=== PATIENT | female | born 1990 | race Caucasian/White ===

== ENCOUNTER 2024-09-16 12:37 | Outpatient (CLI) | payer BC, SELFPAY ==
--- NOTE | 2024-09-16 13:00 | CRLHL7_ITS ---
For Patients: As a result of the Century Cures Act, medical imaging exams and procedure reports are released immediately into your electronic medical record. You may view this report before your referring provider. If you have questions, please contact your health care provider. INDICATION: Dating and viability TECHNIQUE: Ultrasound OB pelvis transvaginal. Real-time de la o-scale imaging of the pelvis was performed. COMPARISON: None FINDINGS: Clinical Age: 8 weeks 3 days (PETER 04/25/2025) Sonographic imaging demonstrates a single living intrauterine gestation. The embryo demonstrates a regular cardiac rate measuring 169 beats per minute. The embryo`s crown rump length measurement of 1.8 cm corresponds to a gestational age of 8 weeks 2 days which is within standard deviation the clinical age. There is a normal appearing yolk sac. There are no gross abnormalities noted within the embryo at this early state of development. The placenta has not yet developed. There is no sign of perigestational hemorrhage. Maternal ovaries unremarkable. There are no suspicious fluid collections noted in the cul-de-sac. IMPRESSION: Single viable intrauterine with a clinical age of 8 weeks 3 days. No abnormalities seen. Dictated by Brady Díaz MD @ 09/17/2024 9:20:04 AM (Electronically Signed)
== END 2024-09-16 12:38 | disposition home or self-care (01) ==
LOC: US 12:38
PROVIDERS: Visit Provider Registered Nurse
DX: Z34.81 Encounter for supervision of other normal pregnancy, first trimester (principal); Z3A.08 8 weeks gestation of pregnancy; Z67.11 Type A blood, Rh negative
CPT/HCPCS: 76817; 86592; 86703; 86704; 86706; 86762; 86787; 86803; 86850; 86900; 86901; 87086; 87340; 87491; 87591

== ENCOUNTER 2024-12-04 08:14 | Outpatient (CLI) | payer BC, SELFPAY | END 2024-12-04 08:15 | disposition home or self-care (01) | LOC: US 08:16 | PROVIDERS: Visit Provider Obstetrics & Gynecology | DX: O09.522 Supervision of elderly multigravida, second trimester (principal); Z3A.19 19 weeks gestation of pregnancy | CPT/HCPCS: 76811 ==

== ENCOUNTER 2025-02-04 10:59 | Outpatient (CLI) | payer BC, SELFPAY | END 2025-02-04 11:00 | disposition home or self-care (01) | PROVIDERS: Visit Provider Advanced Practice Midwife | DX: Z34.92 Encounter for supervision of normal pregnancy, unspecified, second trimester (principal); Z3A.28 28 weeks gestation of pregnancy | CPT/HCPCS: 84443; 86592; 86706; 86850; J2791 ==

== ENCOUNTER 2025-03-27 14:15 | Outpatient (CLI) | payer BC, SELFPAY | END 2025-03-27 14:16 | disposition home or self-care (01) | LOC: NFLDREF 04-03 00:20 | PROVIDERS: Visit Provider Midwife | DX: Z34.83 Encounter for supervision of other normal pregnancy, third trimester (principal) | CPT/HCPCS: 87081; 87653 ==

== ENCOUNTER 2025-04-22 22:13 | Outpatient (CLI) | payer BC, SELFPAY ==
[2025-04-22 22:33] VITALS: PULSE 80; O2SAT 97
[2025-04-22 22:36] VITALS: BP 128/76; PULSE 77; RESP 16; TEMP 36.8
[2025-04-22 22:38] VITALS: PULSE 83; O2SAT 97
[2025-04-22 22:43] VITALS: PULSE 84; O2SAT 97
[2025-04-22 22:48] VITALS: PULSE 83; O2SAT 97
--- NOTE | 2025-04-23 04:44 | PC.OBNST ---
NST Note NST Note Start: 04/22/25 22:30 Freq: ONCE Status: Discharge Protocol: Document 04/22/25 22:30 JACQUI (Rec: 04/23/25 04:44 JACQUI [id number]) NST Note 3 Para (# of births) 2 EDC 04/25/25 Gestational Age In 39 Weeks & 5 Days Weeks & Days Patient Presented Contractions/cramping with Complaint(s) of Reactive Yes RN David Stern RN Date 04/22/25 Reactive Yes STEFANIA Savage Date 04/23/25 OB NST charge Yes Complete NST Note Yes via Write Note The provider's electronic signature indicates the NST is reactive/appropriate for gestational age. *Note to provider: If an addendum is required, open the patient's chart and click on the note under the Nurse/Allied Health tab.
== END 2025-04-22 23:23 | disposition home or self-care (01) ==
LOC: OB OUT 22:14 → OB 22:19
PROVIDERS: Visit Provider Advanced Practice Midwife
DX: O47.1 False labor at or after 37 completed weeks of gestation (principal); Z3A.39 39 weeks gestation of pregnancy
CPT/HCPCS: 59025; G0463

== ENCOUNTER 2025-04-29 18:38 | Inpatient (IN) | payer BC, SELFPAY ==
[2025-04-29] VITALS (13 sets, daily range): BP systolic 120–173; BP diastolic 71–94; PULSE 73–90; RESP 16–20; TEMP 36.5–36.8; BMI 32.5
--- NOTE | 2025-04-29 18:34 | W.PM.LDBA ---
Subjective History of Present Illness Date Seen: 04/29/25 Narrative: Patient is being admitted to Labor and Delivery for spontaneous labor. She is a 35 year old at 40.4 weeks gestation. Her full history and physical was dictated by Ambreen Foley CNM on 04/02/25. Please see this for details. She has been osmani most of the day but they picked up in intensity and frequency around 1500 today. She was found to have made some cervical change since her exam yesterday but is working through contractions more as she is in triage. Her blood pressure was initially elevated with a lower but still elevated repeat at 153/94. When the cuff size was changed with the next check it was 134/85. We discussed dx criteria for gestation hypertension and preeclampsia and recommended labs. She would like to continue to monitor blood pressures as they are improving. If her next recheck is elevated will consider labs at that time. She desires a water so we did discuss potential of risking out with elevated blood pressures and need for continuous monitoring. She is agreeable to this plan. She is GBS + but is declining treatment. Has had many conversations during her and risks have been reviewed. Again reviewed risks briefly and would like to decline treatment. Aware that will have to stay for 36-48 hours after delivery if untreated. Declination of GBS prophylactic treatment form signed. Specific Issues/Plans G 3 P 2001 : Maksim Its another boy! H&P: completed by ZAIDA Bermudez on 04/02/2025 # Advanced maternal age NIPT: declines Level 2 ultrasound: normal scan # History of depression several years ago. Reports that she had low vitamin-D and was given a vitamin-D supplement. Never treated prescription medication. Declines vitamin-D testing today. Is taking a multivitamin. # Nausea. # Hx of PP depression: Will start therapy for plan development prenatally Check TSH with reflex at 28w: 1.020 # Rh negative, A neg FOB is A+, planning rhogam: received 02/04/2025 Rhogam recommend # GBS +, considering declining treatment Need to sign declination form if declining antibiotics in labor, pt aware Imagin09/15/2024: 1st trimester US-Single viable intrauterine with a clinical age of 8 weeks 3 days. No abnormalities seen. Consistent with dating. 12/04/2024: Anatomy US Lev 2-1. Flower intrauterine at 19w 5d gestational age. 2. None of the anomalies commonly detected by ultrasound were evident in the detailed anatomic survey described above. 3. Growth parameters and estimated weight were consistent with appropriate for gestational age pattern of growth. 4. The amniotic fluid volume appeared normal. Flu: Recommended. Declined Covid: Completed, not up-to-date. Recommended. Declined Tdap:02/26/25 RSV: No longer offered 32 week mental health: [] Last pap: December 2020 normal, negative HPV OB - Problem Based A/P Additional Plan (1) Pain during labor: Status: Acute (2) Positive GBS test: Status: Acute (3) Rh negative status during : Status: Acute (4) AMA (advanced maternal age) multigravida 35+: Status: Acute (5) Mixed anxiety and depressive disorder: Status: Acute Plan ASSESSMENT:? at 40.4 weeks gestation? GBS positive? ?complicated by:?AMA (>35), hx anxiety/depression, RH negative, GBS positive Labor type: Spontaneous, Active labor? Category 1 FHR pattern.?? Labor complicated by: GBS positive-declining treatment ? Elevated BP on admit? Blood type:?A- ?? ? PLAN:? 1. Routine intrapartum cares as ordered. Continue with expectant management? 2. Monitoring per policy, continuous ? 3. Planning unmedicated . Desires water . Consent signed. Hep C negative. Candidate for analgesia of choice.?? 4. Patient encouraged to reposition and ambulate to promote physiologic labor and .? 5. GBS prophylaxis encouraged for GBS positive status. Declined with informed consent and declination form signed. 6. Monitor blood pressures. Encouraged labs based on these elevated labs but declines at this time. Consider labs if continue to be elevated.? 6. Anticipate ?? Delivery/Labor/Induction Plan Plan: expectant management OB Result Labs Blood Type: A (-) negative Rubella: immune RPR/VDLR: nonreactive GBS Status: positive HBsAG: negative OB Exam Physical Exam Vital signs: Temp Pulse Resp BP 98.2 F 79 16 134/85 04/29/25 17:56 04/29/25 18:11 04/29/25 17:56 04/29/25 18:11 Detailed Labor and Delivery Exam Patient Gravid: yes Dilation (cm): 4 (per RN exam) Effacement (%): 90 Contraction Frequency: 2-5 min Contraction intensity: Strong/Firm Fetus (Single) Station: -2 Amniotic Membrane Status: intact Heart Rate Baseline: 150 Monitor Accelerations: Present Monitor Decelerations: None Halfway Variability: Moderate (6-25)
[2025-04-29] MEDS: IBUPROFEN 600 MG TABLET PO (20:58)
--- NOTE | 2025-04-29 21:06 | W.PM.OBVAGDE ---
OB Procedure Vag Delivery Mother Details Mother Details: The patient is a 35 year-old, 3, Para 2, admitted on 04/29/25 at 40.3Days gestation. : 3 Para: 3 Weeks Gestation: 40.4 Admission Date: 04/29/25 Additional Details Amniotic Membrane Status: SROM Amniotic Membrane Rupture Date: 04/29/25 Amniotic Membrane Rupture Time: 19:21 Amniotic Membrane Fluid Description: Meconium Stained (lightly stained) Analgesia/Anesthesia Type: None Waterbirth: Yes Pitcoin: No Intrapartal Events: Precipitous Labor <3 Hrs Labor Onset: 18:20 Complete: 19:25 (presumed complete with spontaneous pushing ) Pushin:25 Heart: heart tones during second stage were difficult to trace due to maternal position but category 2. Baseline 140's with occasional variable decelerations noted. Moderate variability with accelerations present. Delivery Details Delivery Date: 04/29/25 Delivery Time: 19:36 Route of delivery: Infant Gender: Male Infant Viability: Alive; Heart Rate Present Position at Delivery: OA Delivery Details: Patient was admitted for spontaneous labor and progressed normally. SROM noted at 192 with light stained meconium fluid. Patient was presumed complete with spontaneous pushing at 1925. of a viable male at 1936 in hands and knees in the tub. Vertex delivered OA. Nuchal cord unable to reduce before delivery due to rapid delivery. Reduced after somersaulting at delivery. No shoulder. Body delivered easily and without incident. passed to mothers abdomen with a vigorous cry. Cord was clamped and cut at > 5 minutes. APGARS were 7 at one minute and 9 at five minutes respectively. Mouth was bulb suctioned. Intact placenta with a 3 vessel cord delivered spontaneously at 5. Fundus firm. 1st degree identified. Hemostatic and well approximated so repair was not indicated. QBL 25 cc. Mother and baby stable; mother plans to breastfeed. Infant weight 6lb9oz. 1 Minute Interval Total Score: 7 5 Minute Interval Total Score: 9 Additional Details Shoulder Dystocia: No Placenta Delivery Time: 19:55 Placental Delivery Description: Spontaneous Procedure Done: Global Blood Loss: 25 Laceration: Perineal - 1st Degree (not repaired ) Episiotomy Description: None Blood Loss Measurement Type: QBL Bakri Used: No Sponge/Need Count Correct: Yes Cord Vessel Description: 3 Vessels, Nuchal Cord and Reduced Event Summary Status: Mother and infant were stable after delivery. Disposition: floor
[2025-04-30] VITALS (8 sets, daily range): BP systolic 106–136; BP diastolic 61–85; PULSE 69–82; RESP 16; TEMP 36.4–36.9; O2SAT 96–98
[2025-04-30] MEDS: IBUPROFEN 600 MG TABLET PO ×2 (04:49→12:56)
--- NOTE | 2025-04-30 08:26 | PM.OBPNVD1 ---
OB - PN:Subj Subjective Date Seen: 04/30/25 Narrative: Geri is a 35 year old who was admitted for spontaneous labor and proceeded to have a vaginal with a 1st degree laceration that was hemostatic and not repaired.The patient feels well.? The pain is well controlled with current medications.? She has no new complaints.? Urinary output is adequate and she is voiding without difficulty.? Has a good appetite, is tolerating a general diet, is passing flatus, and has not had a bowel movement.? Has scant amount of rubra lochia.? She is ambulating well. She is and reports it is going well, but he has been sleepy.? OB - PN: Obj Exam Physical Exam: Vital signs: Temp Pulse Resp BP Pulse Ox O2 Del Method 98.5 F 73 16 136/85 96 Room Air 04/30/25 04:46 04/30/25 04:46 04/30/25 04:46 04/30/25 04:46 04/30/25 04:46 04/30/25 04:46 Narrative: GENERAL APPEARANCE:? normal affect, alert, no distress MOOD:? appropriate CHEST:? clear to auscultation HEART:? regular rate and rhythm ABDOMEN:? soft, non-tender the uterine fundus is At Umbilicus, Midline and is appropriate for the stage of recovery. PERINEUM:?deferred EXTREMITIES:? normal and [] edema OB - PN: A/P Delivery Assessment and Plan (1) Normal spontaneous vaginal delivery: Problem details: x3 Status: Acute (2) care and examination of lactating mother: Status: Acute (3) Positive GBS test: Status: Acute (4) Rh negative status during : Status: Acute Plan Comments: PP day #1 Routine care May see as desired Anticipate discharge 05/01/2025
[2025-05-01] MEDS: IBUPROFEN 600 MG TABLET PO ×2 (01:45→08:07)
--- NOTE | 2025-05-01 07:32 | PM.OBDSVD1 ---
DS: Providers Provider Date Seen: 05/01/25 Date of admission: 04/29/25 18:38 Primary care physician: Not a Local Provider Admitting Clinician: Ruby Adame CNM Attending Physician on discharge: Joni Merino CNM Date of Discharge: 05/01/25 DS: Diagnosis Discharge Diagnosis (1) care and examination of lactating mother: Status: Acute Exam Narrative: Exam Narrative: VSS, afebrile GENERAL APPEARANCE: ?normal affect, alert, no distress MOOD: ?appropriate HEENT: normocephalic, neck supple, full ROM CHEST: ?Symmetrical chest wall movement. ?Normal respiratory effort. ?Clear to auscultation HEART: ?regular rate and rhythm ABDOMEN: ?soft, non-tender. Uterine fundus is firm, 1 below Umbilicus, Midline and is appropriate for the stage of recovery. ?Bowel sounds present. PERINEUM: ?mild edema of the perineum, there is a 1st degree laceration that is healing well. EXTREMITIES: ?normal and no edema Const: Vital Signs, click to edit/add: Vital Signs - 24 hr 04/30/25 08:55 04/30/25 13:00 04/30/25 16:15 Temperature 98.1 F 97.5 F L 97.5 F L Pulse Rate [Pulse Oximeter] 70 82 77 Respiratory Rate 16 16 16 Blood Pressure [Ri ght Arm] 118/82 121/82 106/67 Pulse Oximetry 97 96 Oxygen Delivery Me thod Room Air Room Air Room Air 04/30/25 20:19 04/30/25 23:04 Temperature 97.9 F 98.1 F Pulse Rate [Pulse Oximeter] 69 72 Respiratory Rate 16 16 Blood Pressure [Ri ght Arm] 116/82 122/81 Pulse Oximetry 98 98 Oxygen Delivery Me thod Room Air Room Air Documenting provider has reviewed patient's vital signs: yes OB - DS: Summary Hospital Course Hospital Course: Geri is a 35 y.o. who was admitted to L & D for labor. ?She had an uncomplicated NVD.?The patient feels well. ?The pain is well controlled with current medications. ?She has no new complaints. ?She is breast feeding and reports things are going well.? the patient has done well.? Vitals have been stable.? She has remained afebrile.? Has a good appetite, is tolerating a general diet. ?She is voiding without difficulty.? She is passing gas and has not had a bowel movement.? She is ambulating and denies any dizziness.? Has Small amount of rubra lochia. ?She is planning condoms for prevention. She desires discharge today. Peripartum Data Infant delivery method: Vaginal Laceration description: Periurethral - 1st Degree complications: none Infant Gender: Male Discharge Plan: Home Status at Discharge Functional status at discharge: independent ambulation Overall status at discharge: patient is progressing back to baseline Time Spent with Patient Time attestation: Total time spent providing and/or coordinating discharge services: Time spent: Less than 30 minutes Discharge Plan Discharge Disposition: Home, Self-Care Date of Admission: 04/29/25 18:38 Attending Provider on Discharge: Joni Merino Primary Care Provider: Provider,Not a Local Condition: Stable Anticipated Discharge Date/Time: 05/01/25 12:00 Discharge Medications: New acetaminophen 500 mg Tablet 1,000 mg PO Q6H PRNQty: 0 0RF docusate sodium 100 mg Capsule 100 mg PO DAILY Qty: 90 1RF ibuprofen 600 mg Tablet 600 mg PO Q6H PRNQty: 60 0RF Continued Multi-DHA(with vit K) 27 mg iron-800 mcg-260 mg capsule 1 cap PO QDAY Digestive Advantage Prob Gummy 250 million cell tablet,chewable 250 mmu cells PO ONCE calcium carbonate [Tums Ultra] 400 mg calcium (1,000 mg) tablet,chewable 400 mg PO ONCE omeprazole 10 mg capsule,delayed release(DR/EC) 10 mg PO ONCE Discharge Orders: Discharge Order (Routine); Ordered 05/01/25 Ordered By: Joni Merino Patient Education: OB Over the Counter Medication Information, OB Vaginal/Breast Feeding Additional Instructions: Discharge instructions were reviewed with the patient including signs and symptoms of infection and home going medications Nothing vaginally for 6 weeks: no tampons or intercourse Off Work or School for 6 weeks 2-week visit: discuss infant feeding concerns, review control options and screen for anxiety/depression. 6-week visit for an annual exam. consultation services are available to all mothers and babies for the first year after delivery.? To make an appointment, please call [phone]. Activity Level: Activity as Tolerated Discharge Diet: Regular Follow Up Appointments: [facility] [Provider Group] Forms: Team My Mobileth Info Instructions
[2025-05-01 07:57] VITALS: BP 118/81; PULSE 69; RESP 16; TEMP 36.7; O2SAT 98
[2025-05-01] MEDS: DOCUSATE SODIUM 100 MG CAPSULE PO (08:07)
[2025-05-01 16:53] LABS: Rapid Plasma Reagin (RPR) Non Reactive (Non Reactive)
== END 2025-05-01 12:15 | disposition home or self-care (01) | DRG 560 ==
LOC: OB OUT 18:38 → OB 04-30 11:34
PROVIDERS: Admitting Provider Advanced Practice Midwife; Visit Provider Advanced Practice Midwife
DX: O99.824 Streptococcus B carrier state complicating childbirth (principal); O77.0 Labor and delivery complicated by meconium in amniotic fluid; O62.3 Precipitate labor; O26.893 Other specified pregnancy related conditions, third trimester; Z67.11 Type A blood, Rh negative; O99.344 Other mental disorders complicating childbirth; F41.8 Other specified anxiety disorders; O70.0 First degree perineal laceration during delivery; Z37.0 Single live birth; Z3A.40 40 weeks gestation of pregnancy
CPT/HCPCS: 36415; 85461; 86592; G0463; A9270; J2791

== ENCOUNTER 2025-05-26 14:06 | Outpatient (CLI) | payer BC, SELFPAY ==
--- NOTE | 2025-05-26 17:03 | W.PM.LAC.MC ---
Consult Note - Mom Date of Visit Date of visit: 05/26/25 Reason for consultation: Assistance Needed and Breast/Nipple Issue (pain with nursing) Visit Code: Visit Patient's Information Phone number: [phone] : 3 Para: 3 Allergies avocado Allergy (Unknown, Verified 04/29/25 16:45) Itchy palms and feet Mother's Medical History: Medical History (Updated 05/06/25 @ 00:01 by Background Daemon) Positive GBS test ?B95.1 - Streptococcus, group B, as the cause of diseases classified elsewhere (ICD-10) Normal spontaneous vaginal delivery ?O80 - Encounter for full-term uncomplicated delivery (ICD-10) Migraine headache ?G43.909 - Migraine, unspecified, not intractable, without status migrainosus (ICD-10) Mixed anxiety and depressive disorder (09/05/13) ?F41.8 - Other specified anxiety disorders (ICD-10) Childhood asthma ?J45.909 - Unspecified asthma, uncomplicated (ICD-10) Work Plans: return to work in Jul 2025; job more amenable to being able to pump to maintain supply Delivery Information Delivery type: Vaginal Gestational Age: 40+3 Gestational Weight For Age: SGA Weight: 2.94 kg Baby's Information Baby's Age at Visit: 27 days Baby's Provider or Clinic: [facility] Jaundice: No Past Experience Past Experience: Yes Current Frequency of Day Feedings: every 2-3 hrs day and night, waking self for feeding Both Breasts: Yes Suck: strong Latch: maybe shallow given nipple/breast pain Length of Time: 10-15 min ea side Goals: hopefully a year this time Pumping Pumping: Yes Quantity Pumped: 3-4 oz Supplementing EBM Supplement: Yes (occas, takes 2-25 oz) Formula Supplement: No Baby Elimination Number of Wet Diapers a Day: ea feeding Number of BM a Day: 6-8/day; yellow, seedy Breast/Nipple Condition Breast Information: Breasts are symmetrical with rounded lower quadrants, intramammary distance is less than 1.5 inches. No erythema. Nipples are supple, everted prior to feeding. RIGHT nipple has small scabbed area. Mom describe breast pain with feeding as the following: Inside the breast, inner upper quadrants, also right side outer quadrant that wraps around to her back This happens after a feeding, not during the feeding, usually about 5 min or so after the feeding, lasts about 45 minutes Pain is with almost every feeding, worse in the evening than the daytime. Pain is also worse after she starts moving around after feeding. Heat feels soothing The nipple pain with the latch is only for 30-60 seconds which is different than the breast pain Breast Shape: Pendulous Engorgement: No Maternal Nipple Condition - Left: Short Maternal Nipple Condition - Right: Short Sore Nipples: Yes Interventions for Sore Nipples: Lansinoh/Nipple Cream Baby Assessment Skin: Normal Tongue/frenulum: Restricted mid-range and History of frenotomy (Dr. Morales clipped anterior tongue tie at clinic visit) Palate: Average Lips: Tight labial frenulum Jaw Alignment: Symmetrical Mucosa: [place], moist Onsite Observation Pre-Feed weight: 3.644 kg Post-Feed weight: 3.724 kg Milk Transferred (mL): 80 Position: Cross cradle Attachment/latch-on achieved: Easily and With difficulty (to get a deep comfortable latch) Suck pattern: Suck burst and normal rest Swallow: Audible, consistent and Gulping Behavior following feed: Alert, content Pre-Nursing Left Nipple: Within Normal Limits Pre-Nursing Right Nipple: Crusting/Scabs Post-Nursing Left Nipple: Within Normal Limits (able to get a deeper latch initially than on the right side) Post-Nursing Right Nipple: Redness and Creased/Beveled Assessments/Interventions Assessments/Interventions: Candy latched to mom's RIGHT breast, latched well but painful; worked with mom to relatch more deeply with reported decreased pain and stayed nursing for 14 minutes. Babe was on and off a few times; initially mom declined using a breast feeding pillow but then used it; able to get baby latched more deeply with the support of the pillow so she could focus on latching and not full body support Transferred 52 ml of milk Candy then latched to mom's LEFT breast, latched more easily and nursed for another minutes. Transferred 18 ml of milk. Candy needed some gentle upper back support to stay latched deeply. Education provided: Early feeding cues to maximize timing of latching, Asymmetric latch technique for wide/deep latch to increase milk, Transfer for baby and increase comfort for mom, Supply/demand nature of milk supply, Need for frequent stimulation/milk removal, Sore nipple treatment options, Alternative feeding methods (SNS, cup, finger feeding, bottling), Pumping for milk management (agreed it's ok to pump 1-2 time/day to build supply as long as not moving into oversupply) and Other (Vasospasm, tongue tie information) Handouts Provided: Vasospasm - treatments Tongue tie/suck training exercises and Dr. zapien in [place] for potential posterior tongue tie release Follow-Up Recommend baby be seen by provider for:: Tethered oral tissue release Recommend mom be seen by provider for:: Ongoing Vasospasm pain if needed Time Spent Time spent with patient (min): 75 Meds Home Medications and Allergies Home Medications ?Medication ?Instructions ?Recorded ?Confirmed ?Type PNV no.151-iron 27 mg-folic 800 1 cap PO QDAY 12/10/24 04/29/25 History mcg-omega3 260 [id number] capsule ( Multi-DHA (with vitamin K)) calcium carbonate (Tums Ultra) 400 mg PO ONCE 02/17/25 04/29/25 History Bacillus coagulans 250 million 250 mmu cells PO ONCE 04/10/25 04/29/25 History cell chewable tablet (Digestive Advantage Probiotic Gummy) omeprazole 10 mg capsule,delayed 10 mg PO ONCE 04/21/25 04/29/25 History release acetaminophen 500 mg tablet 1,000 mg (2 x 500 mg) PO Q6H PRN 05/01/25 Rx #0 tabs docusate sodium 100 mg capsule 100 mg PO DAILY #90 caps 05/01/25 Rx ibuprofen 600 mg tablet 600 mg PO Q6H PRN #60 tabs 05/01/25 Rx Allergies Allergy/AdvReac Type Severity Reaction Status Date / Time avocado Allergy Unknown Itchy Verified 04/29/25 16:45 palms and feet
== END 2025-05-26 14:07 | disposition home or self-care (01) ==
PROVIDERS: Visit Provider Obstetrics & Gynecology
DX: Z39.1 Encounter for care and examination of lactating mother (principal)
CPT/HCPCS: G0463